=== PATIENT | female | born 1955 | race Two or more races ===

== ENCOUNTER 2022-06-28 17:39 | Emergency (ER) | payer MEDICARE, OTHER ==
[~2022-06-28] VITALS: Ht 144.8 cm; Wt 67.5 kg
[2022-06-28 19:22] LABS: Urine Bacteria NONE SEEN /hpf (None Seen); Urine Blood Negative /uL (Negative); Urine Mucus FEW (None Seen); Urine Specific Gravity 1.021 (1.001-1.035); Urine WBC 26 /hpf (0 - 5)
[2022-06-28] MEDS ORDERED: KETOROLAC TROMETH 60MG/2ML VIAL IM ONE (22:15)
[2022-06-28] MEDS ORDERED: CEPH-510 PO (22:20)
[2022-06-28 23:00] VITALS: BP 145/70
== END 2022-06-28 23:05 | disposition home or self-care (01) ==
LOC: ER 17:42
DX: N39.0 Urinary tract infection, site not specified (principal); M79.10 Myalgia, unspecified site; B34.9 Viral infection, unspecified; R51.9 Headache, unspecified
CPT/HCPCS: 71046; 81001; 96372; 99284; J1885